=== PATIENT | male | born 1960 | race Caucasian/White ===

== ENCOUNTER 2017-09-03 08:13 | Day surgery (SDC) | payer BC ==
[2017-09-03] VITALS (8 sets, daily range): BP systolic 124–153; BP diastolic 72–98
[~2017-09-03] VITALS: Ht 172.7 cm; Wt 85.3 kg
--- NOTE | 2017-09-03 08:21 | Immediate Post-Op Evaluation ---
Immediate Post-Op Evalulation Immediate Post-Op Evalulation Procedure: Colonoscopy Date of Evaluation: Sep 03, 2017 Time of Evaluation: 10:09 IV Fluids: 600 LR Blood Products: 0 Estimated Blood Loss: 4 Urinary Output: 0 Blood Pressure Systolic: 124 Blood Pressure Diastolic: 83 Pulse Rate: 85 Respiratory Rate: 16 O2 Sat by Pulse Oximetry: 98 Temperature (Fahrenheit): 97.6 Pain Score (1-10): 1 Nausea: No Vomiting: No Complications 0 Patient Status: awake, reacts, patent, none Hydration Status: adequate Gianfranco Mcgee MD Sep 03, 2017 08:21
[2017-09-03] MEDS ORDERED: LIPITOR20 MG ORAL (08:47)
[2017-09-03] MEDS ORDERED: LOSARTAN POTASS50 MG ORAL (08:47)
[2017-09-03] MEDS ORDERED: VITAMIN B122500 MCG PO (08:51)
[2017-09-03] MEDS ORDERED: VITAMIN D31000 UNI1 PO (08:51)
[2017-09-03] MEDS ORDERED: LR 1000ml ONE (09:00)
[2017-09-03] MEDS ORDERED: Lidocaine 1% MPF 10mg/ml 5ml ONE (09:00)
[2017-09-03] MEDS ORDERED: Propofol 200mg/20ml IV ONE (09:00)
[2017-09-03] MEDS ORDERED: Midazolam 2mg/2ml Inj ONE (09:00)
[2017-09-03] MEDS ORDERED: Alfentanil 2ml Inj ONE (09:00)
--- NOTE | 2017-09-03 09:16 | Anethesia Preoperative Eval ---
Anesthesia Pre-op PMH/ROS General Date of Evaluation: Sep 03, 2017 Time of Evaluation: 09:04 Anesthesiologist: Arely ASA Score: ASA 3 Mallampati Score Class I : Soft palate, uvula, fauces, pillars visible Class II: Soft palate, uvula, fauces visible Class III: Soft palate, base of uvula visible Class IV: Only hard plate visible Mallampati Classification: Class II Surgeon: Chinyere Diagnosis: Abd Pain Surgical Procedure: Colonoscopy Anesthesia History: none Family History: no anesthesia problems Allergies: Coded Allergies: PENICILLINS (Verified Allergy, Unknown, 09/03/17) Medications: see eMAR Past Medical History Cardiovascular: Reports: HTN, other - HL Gastrointestinal/Genitourinary: Reports: GERD PSxH Narrative: Appendectomy, Abd Sx Pyloric Stenosis Anesthesia Pre-op Phys. Exam Physician Exam Last Vital Signs Date Time Temp Pulse Resp B/P (MAP) Pulse Ox O2 Delivery O2 Flow Rate FiO2 09/03/17 08:45 97.7 69 18 153/72 97 Room Air Constitutional: NAD Neurologic: CN 2-12 intact Cardiovascular: RRR Respiratory: CTA Gastrointestinal: S/NT/ND Airway Exam Mallampati Score: Class II MO: full ROM: full Teeth: intact Anesthesia Pre-op A/P Risk Assessment & Plan Assessment: ASA 3 Plan: GA Status Change Before Surgery: Gianfranco Fraser MD Sep 03, 2017 09:16
--- NOTE | 2017-09-03 09:19 | Pre-Procedure Note/Attestation ---
Pre-Procedure Note/Attestation Complete Prior to Procedure Planned Procedure: not applicable Procedure Narrative: colon Indications for Procedure Pre-Operative Diagnosis: screen Attestation I attest that I discussed the nature of the procedure; its benefits; risks and complications; and alternatives (and the risks and benefits of such alternatives ), prior to the procedure, with the patient (or the patient's legal herbicide service sales representative). I attest that, if there was a reasonable possibility of needing a blood transfusion, the patient (or the patient's legal herbicide service sales representative) was given the [facility] standardized written summary, pursuant to the Abdifatah Kika Blood Safety Act ([place] Health and Safety Code # 1645, as amended). I attest that I re-evaluated the patient just prior to the surgery and that there has been no change in the patient's H&P, except as documented below: JUANITO BUENO Sep 03, 2017 09:19
--- NOTE | 2017-09-03 09:24 | 48 Hour Post Anesthesia Eval ---
Post Anesthesia Evaluation Procedure: Colonoscopy Date of Evaluation: Sep 03, 2017 Time of Evaluation: 12:16 Blood Pressure Systolic: 143 0: 78 Pulse Rate: 72 Respiratory Rate: 18 Temperature (Fahrenheit): 98.3 O2 Sat by Pulse Oximetry: 99 Airway: patent Nausea: No Vomiting: No Pain Intensity: 0 Hydration Status: adequate Cardiopulmonary Status: Stable Mental Status/LOC: patient returned to baseline Follow-up Care/Observations: 0 Post-Anesthesia Complications: 0 Follow-up care needed: ready to discharge Gianfranco Mcgee MD Sep 03, 2017 09:24
[2017-09-03] MEDS ORDERED: LR 1000ml 1,000 ML IVLG SCH (09:33)
[2017-09-03] MEDS ORDERED: Norco 5mg/325mg tab ORAL PRN (09:45)
[2017-09-03] MEDS ORDERED: fentaNYL 100 mcg/2 mL IV PRN (09:45)
[2017-09-03] MEDS ORDERED: Atropine Inj 1mg/10ml Syr IV PRN (09:45)
[2017-09-03] MEDS ORDERED: LORazepam Inj 2mg/ml 1ml IV PRN (09:45)
[2017-09-03] MEDS ORDERED: Labetalol 5mg/ml 20ml vial IV PRN (09:45)
[2017-09-03] MEDS ORDERED: HYDROcodone/Acetamin 7.5/325 tab ORAL PRN (09:45)
[2017-09-03] MEDS ORDERED: oxyCODONE HCL/Acetaminophen 5/325mg ORAL PRN (09:45)
[2017-09-03] MEDS ORDERED: DiphenhydrAMINE 50mg/ml Inj IVP PRN (09:45)
[2017-09-03] MEDS ORDERED: Hydromorphone 0.5mg/0.5ml inj IVP PRN (09:45)
[2017-09-03] MEDS ORDERED: Midazolam 2mg/2ml Inj IVP PRN (09:45)
[2017-09-03] MEDS ORDERED: Ketorolac 30mg Inj IV PRN (09:45)
[2017-09-03] MEDS ORDERED: Ketorolac 60mg Inj IV PRN (09:45)
[2017-09-03] MEDS ORDERED: Metoclopramide 10mg/2ml Inj IVP PRN (09:45)
--- NOTE | 2017-09-04 01:45 | Operative Note - Dictated ---
DATE OF OPERATION: 09/03/2017 GASTROENTEROLOGY PROCEDURE REPORT PROCEDURE: Screening colonoscopy as well as polypectomy. SURGEON: Issa Whitlock M.D. ANESTHESIA: Please see the separate anesthesiologist notes for details. PRE-ENDOSCOPIC DIAGNOSIS: Screening. POST-ENDOSCOPIC DIAGNOSES: 1. Normal terminal ileum up to 5 centimeters seen. 2. Semi-pedunculated polyp seen in the sigmoid colon at 30 centimeter, status post hot snare polypectomy. 3. Semi-pedunculated polyp seen in the rectum at 10 centimeters, status post hot snare polypectomy. 4. Mild and early sigmoid diverticulosis. 5. Enlarged smooth prostate exam on digital examination. PROCEDURE IN DETAIL: The procedure, its risks, indications, alternatives, and possible complications including, but not limited to bleeding, infection, perforation, , and anesthesia complications were explained to the patient and informed consent was obtained. Rectal exam was done and then the colonoscope was introduced in the rectum and advanced to 5 centimeters into the terminal ileum. The colonoscope was then gradually withdrawn. The mucosa examined carefully. Examination findings are listed above. The polypectomy specimens were sent to pathology for review. The colonoscope was removed. The patient was sent to recovery in good condition. COMPLICATIONS: None. RECOMMENDATIONS: 1. High-fiber diet. 2. Follow up pathology results of the polypectomy specimens. 3. Evaluate the patient for prostatic hypertrophy as an outpatient. Issa Whitlock M.D. DR: SANTI JOB#: [id number] CC: Issa Whitlock M.D.; Fax#: [phone]
--- NOTE | 2017-09-05 08:38 | Endoscopy Procedure Note ---
Endoscopy Procedure Note Indication for Procedure: screen Procedures Performed: colonoscopy Operative Findings/Diagnosis: colon polyps, tics Specimen: yes Pt Tolerated Procedure Well: Yes Estimated Blood Loss: none Anesthesiologist: see list Anesthesia: MAC Medication Given: see anesthesia record Implant(s) used?: No 50 yrs or older w/o bx or poly: No 10yrs. F/U not recommended: No If not recommended, why?: Above average risk 10 yrs. F/U needed: No 18 years or older w/prev. colo: No <3yrs. since last colonoscopy: No Med reason:<3 yrs.: System Reason:<3 yrs.: Last colonoscopy >= to 3yrs: Yes - patient with polyps, repeat colon in 5-10 years Last colonoscopy >= to 3yrs: No JUANITO BUENO Sep 05, 2017 08:38
--- NOTE | 2017-09-05 08:40 | Brief Operative Note ---
Immediate Post Operative Note Operative Note Chief Complaint: screen Pre-op Diagnosis: screen Procedure: colon Post-op Diagnosis: 1. Normal terminal ileum up to 5 centimeters seen. 2. Semi-pedunculated polyp seen in the sigmoid colon at 30 centimeter, status post hot snare polypectomy. 3. Semi-pedunculated polyp seen in the rectum at 10 centimeters, status post hot snare polypectomy. 4. Mild and early sigmoid diverticulosis. 5. Enlarged smooth prostate exam on digital examination. Surgeon: serjio Anesthesiologist: see report Anesthesia: MAC Specimen: yes Complications: none Condition: stable Fluids: recorded Estimated Blood Loss: none Drains: none Implant(s) used?: No JUANITO BUENO Sep 05, 2017 08:40
== END 2017-09-03 11:15 | disposition home or self-care (01) ==
LOC: GAS 08:13
DX: Z12.11 Encounter for screening for malignant neoplasm of colon (principal); K57.90 Diverticulosis of intestine, part unspecified, without perforation or abscess without bleeding; K63.5 Polyp of colon; D12.5 Benign neoplasm of sigmoid colon; I10 Essential (primary) hypertension; K21.9 Gastro-esophageal reflux disease without esophagitis; Z90.89 Acquired absence of other organs; Z88.0 Allergy status to penicillin; D12.8 Benign neoplasm of rectum
CPT/HCPCS: 45384; J2250; J2704; J3490; J7120; 94003; 94150